=== PATIENT | female | born 1995 | race Two or more races ===

== ENCOUNTER 2016-05-01 17:31 | Emergency (ER) | payer MEDICAID ==
[~2016-05-01] VITALS: Ht 157.5 cm; Wt 55.0 kg
[2016-05-01 17:32] VITALS: BP 104/58
== END 2016-05-01 19:24 | disposition left against medical advice (07) ==
LOC: ER 17:32
DX: O26.891 Other specified pregnancy related conditions, first trimester (principal); R10.9 Unspecified abdominal pain; Z3A.08 8 weeks gestation of pregnancy; Z98.890 Other specified postprocedural states